=== PATIENT | female | born 1965 | race Two or more races ===

== ENCOUNTER 2024-02-17 08:31 | Emergency (ER) | payer OTHER ==
[~2024-02-17] VITALS: Ht 154.9 cm; Wt 117.9 kg
[2024-02-17] MEDS ORDERED: MORPHINE SULFATE INJ 2 MG/ML DISP.SYRIN IM ONE (09:00)
[2024-02-17] MEDS ORDERED: ONDANSETRON 4 MG TAB.RAPDIS PO ONE (09:00)
[2024-02-17] MEDS ORDERED: IOHEXOL-300 100 ML VIAL IV ONE (09:31)
[2024-02-17] MEDS ORDERED: IV NS 0.9% 250 ML IV ONE (09:31)
[2024-02-17 09:47] LABS: BASOPHILS % (AUTO) 0.5 % (0.0-2.0); EOSINOPHILS # (AUTO) 0.1 K/uL (0.0-0.7); HEMATOCRIT 44 % (33-45); HEMOGLOBIN 14.3 g/dL (11.5-14.8); LYMPHOCYTES # (AUTO) 1.8 K/uL (0.8-4.8); LYMPHOCYTES % (AUTO) 24.2 % (20.0-44.0); MEAN CORPUSCULAR HEMOGLOBIN 27 PG (26.0-33.0); MEAN CORPUSCULAR HGB CONC 33 g/dl (31.0-36.0); MEAN CORPUSCULAR VOLUME 82 fL (82-100); MONOCYTES # (AUTO) 0.4 K/uL (0.1-1.30); MONOCYTES % (AUTO) 5.9 % (2.0-12.0); NEUTROPHILS # (AUTO) 5.1 K/uL (1.8-8.9); NEUTROPHILS % (AUTO) 68.4 % (43.0-81.0); PLATELET COUNT (AUTO) 203 K/uL (150-450); RED BLOOD CELL COUNT(AUTO) 5.31 MIL/uL (4.0-5.2); RED CELL DISTRIBUTION WIDTH 14.3 % (11.5-15.0); WHITE BLOOD COUNT (AUTO) 7.5 K/uL (4.3-11.0)
[2024-02-17 10:01] LABS: INR 0.99 (0.91-1.10); PARTIAL THROMBOPLASTIN TIME 26.1 SEC (24.3-34.3); PROTHROMBIN TIME 10.5 SECS (9.2-11.1)
[2024-02-17 10:11] LABS: CREATININE 0.7 mg/dL (0.6-1.3)
[2024-02-17 10:18] LABS: ALBUMIN 3.8 g/dL (3.4-5.0); BILIRUBIN,DIRECT 0.1 mg/dL (0.0-0.2); BILIRUBIN,TOTAL 0.3 mg/dL (0.2-1.0); TOTAL PROTEIN, SERUM 7.6 g/dL (6.4-8.2)
[2024-02-17] MEDS ORDERED: ACETAMINOPHEN 325 MG TABLET ONE (11:16)
[2024-02-17] MEDS ORDERED: ONDANSETRON 4 MG TAB.RAPDIS ONE (11:16)
[2024-02-17] MEDS: ONDANSETRON 4 MG TAB.RAPDIS SL ONE (11:22)
[2024-02-17] MEDS: ACETAMINOPHEN 325 MG TABLET PO ONE (11:22)
[2024-02-17] MEDS ORDERED: IBUP-1955 PO (11:51)
[2024-02-17] MEDS ORDERED: CYCL5TAB PO (11:51)
[2024-02-17 13:17] VITALS: BP 143/93; TEMP 98.1; O2SAT 95
== END 2024-02-17 13:17 | disposition home or self-care (01) ==
LOC: ER 08:35
DX: S16.1XXA Strain of muscle, fascia and tendon at neck level, initial encounter (principal); S46.912A Strain of unspecified muscle, fascia and tendon at shoulder and upper arm level, left arm, initial encounter; S76.012A Strain of muscle, fascia and tendon of left hip, initial encounter; R07.89 Other chest pain; R10.9 Unspecified abdominal pain; R16.0 Hepatomegaly, not elsewhere classified; E11.9 Type 2 diabetes mellitus without complications; E78.5 Hyperlipidemia, unspecified; I10 Essential (primary) hypertension; I48.91 Unspecified atrial fibrillation; V43.52XA Car driver injured in collision with other type car in traffic accident, initial encounter; Y93.89 Activity, other specified; Y92.488 Other paved roadways as the place of occurrence of the external cause; Y99.8 Other external cause status
CPT/HCPCS: 99285; 72125; 93005; 71260; 70450; 74177; 85025; 80048; 80076; 36415; 85730; 86850; J7050; Q0162; Q9967